=== PATIENT | female | born 1985 | race Caucasian/White ===

== ENCOUNTER 2018-09-29 02:43 | Emergency (ER) | payer MEDICAID ==
[~2018-09-29] VITALS: Ht 177.8 cm; Wt 80.1 kg
[2018-09-29 02:45] VITALS: BP 132/76
[2018-09-29] MEDS ORDERED: LIDOCAINE 1%, 10ML INFIL ONE (03:30)
== END 2018-09-29 03:42 | disposition home or self-care (01) ==
LOC: ED 03:00
DX: L03.311 Cellulitis of abdominal wall (principal); L02.211 Cutaneous abscess of abdominal wall
CPT/HCPCS: 10060; 99283

== ENCOUNTER 2018-10-01 16:29 | Emergency (ER) | payer MEDICAID ==
[~2018-10-01] VITALS: Ht 177.8 cm; Wt 78.7 kg
[2018-10-01 16:47] VITALS: BP 129/85
[2018-10-01] MEDS ORDERED: OXYcodone/APAP 5/325MG TABLET ONE (17:13)
[2018-10-01] MEDS ORDERED: ONDANSETRON ODT 4 MG ONE (17:14)
--- NOTE | 2018-10-01 17:17 | NUR ---
PT MEDICATED FOR 7/10 PAIN ORDERED.
[2018-10-01] MEDS ORDERED: ONDANSETRON ODT 4 MG PO ONE (17:30)
[2018-10-01] MEDS ORDERED: OXYcodone/APAP 5/325MG TABLET PO ONE (17:30)
== END 2018-10-01 18:20 | disposition home or self-care (01) ==
LOC: ED 18:06
DX: Z48.01 Encounter for change or removal of surgical wound dressing (principal); F17.200 Nicotine dependence, unspecified, uncomplicated
CPT/HCPCS: 99283; Q0162

== ENCOUNTER 2020-02-20 03:51 | Emergency (ER) | payer MEDICAID, OTHER ==
[~2020-02-20] VITALS: Ht 177.8 cm; Wt 83.1 kg
--- NOTE | 2020-02-20 04:11 | NUR ---
pt states dropping metal plate on hand yesterday at work. pt states increasing pain and pain with movement and palpation. pt on continuous pulse ox, awaiting xray
--- NOTE | 2020-02-20 04:16 | NUR ---
pt having some slurred speech, denies etoh or drug usage. face is symetrical, steady ambulating, pupils equal and reactive to light, tongue midline.
[2020-02-20] MEDS ORDERED: HYDROcodone/APAP 5/325 TABLET ONE (04:44)
--- NOTE | 2020-02-20 04:49 | NUR ---
pt medicated per emar. pt denies need for ice pack, ice pack at bedside, hand elevated.
[2020-02-20] MEDS ORDERED: HYDROcodone/APAP 5/325 TABLET PO ONE (05:00)
--- NOTE | 2020-02-20 05:27 | NUR ---
EMT applying thumb spica to left hand. DC papers, rx and instruct provided to pt. Pt verbalizes understanding of instruct and f/u.
[2020-02-20 05:28] VITALS: BP 142/74
--- NOTE | 2020-02-20 05:28 | NUR ---
TECH AT BEDSIDE FOR YANIRA
== END 2020-02-20 05:41 | disposition home or self-care (01) ==
LOC: ED 05:12
DX: S60.222A Contusion of left hand, initial encounter (principal); W04.XXXA Fall while being carried or supported by other persons, initial encounter; Y93.89 Activity, other specified; Y92.69 Other specified industrial and construction area as the place of occurrence of the external cause; Y99.8 Other external cause status
CPT/HCPCS: 29125; 99283

== ENCOUNTER 2020-05-25 23:08 | Emergency (ER) | payer MEDICAID ==
[~2020-05-25] VITALS: Ht 177.8 cm; Wt 87.0 kg
[2020-05-25] MEDS ORDERED: KETOROLAC 30 MG/1 ML ONE (23:26)
[2020-05-25] MEDS ORDERED: ACETAMINOPHEN 500 MG TABLET ONE (23:26)
[2020-05-25] MEDS ORDERED: ACETAMINOPHEN 500 MG TABLET PO ONE (23:30)
[2020-05-25] MEDS ORDERED: KETOROLAC 30 MG/1 ML IM ONE (23:30)
--- NOTE | 2020-05-25 23:33 | NUR ---
PT REPORTS COMING INTO ED EARLIER TODAY SHE BEGAN TO HAVE LEFT SIDED FLANK AND ABDOMINAL PAIN, PT RESTING ON GURNEY, CHANGED INTO GOWN, DENIES BLOOD BEING NOTED IN URINE. AUNT AT BS. PT BED IN [facility], RAILS ENGAGED, CALL LIGHT ON LAP, PROVIDED WARM BLANKETS FOR COMFORT, VSS. AMBULATED TO AND FROM RESTROOM WITH A SMOOTH AND STEADY GAIT. UA OBTAINED. WCTM. WAITING FOR LAB RESULTS.
[2020-05-25 23:38] LABS: BASOPHILS % (AUTO) 1 % (0-1); EOSINOPHILS % (AUTO) 1 % (1-7); LYMPHOCYTES % (AUTO) 31 % (22-44); MEAN CORPUSCULAR HEMOGLOBIN 32.5 pg (27.0-34.8); MEAN CORPUSCULAR HGB CONC 34.6 g/dL (32.4-35.8); MEAN PLATELET VOLUME 8.4 fL (7.4-10.4); MONOCYTES % (AUTO) 8 % (2-9); NEUTROPHILS % (AUTO) 59 % (42-75); PLATELET COUNT 233 x10^3/uL (130-400); RED BLOOD COUNT 4.12 x10^6/uL (3.82-5.3); RED CELL DISTRIBUTION WIDTH 12.8 % (9.6-15.2)
[2020-05-25 23:39] LABS: MD NO
[2020-05-25 23:44] LABS: MICROSCOPIC NOT IND
[2020-05-25 23:50] LABS: ALBUMIN 3.7 g/dL (3.4-5.0); ANION GAP 5 mmol/L (5-15); CALCIUM 8.2 mg/dL (8.5-10.1); CHLORIDE 108 mmol/L (98-107); CREATININE 1.01 mg/dL (0.55-1.02)
[2020-05-26 00:44] VITALS: BP 95/60
--- NOTE | 2020-05-26 00:45 | NUR ---
Patient given discharge instructions and they have confirmed that they understand the instructions. Patient ambulatory with steady gait. NAD, DENIES ADDITIONAL QUESTIONS OR NEEDS, NO PERSONAL BELONGINGS LEFT IN ROOM AFTER DC. AUNT COMING TO INSTRUCTIONAL [employer] TE[employer]ER PATIENT.
== END 2020-05-26 00:47 | disposition home or self-care (01) ==
LOC: ED 23:38
DX: S39.012A Strain of muscle, fascia and tendon of lower back, initial encounter (principal); R10.9 Unspecified abdominal pain; F17.210 Nicotine dependence, cigarettes, uncomplicated; X58.XXXA Exposure to other specified factors, initial encounter; Y93.89 Activity, other specified; Y92.89 Other specified places as the place of occurrence of the external cause; Y99.8 Other external cause status
CPT/HCPCS: 36415; 80048; 81003; 82040; 84703; 85025; 96372; 99283; 99406; J1885